=== PATIENT | male | born 1980 | race Caucasian/White ===

== ENCOUNTER 2017-08-29 18:50 | Inpatient (IN) | payer OTHER ==
[2017-08-29] MEDS ORDERED: Iohexol 240 (50 ml) PO ONE (19:17)
--- NOTE | 2017-08-29 19:21 | ED PDOC ---
HPI: Abdomen Time Seen by Provider: 08/29/17 19:08 Chief Complaint (Nursing): Abdominal Pain Chief Complaint (Provider): Abdominal pain History Per: Patient Additional Complaint(s): 37 yo male, denies any PMH, presents to ED for evaluation of a possible appendicitis. Pt reports that last night ~ 2300, he developed epigastric abdominal pain that has since worsened and is now radiating from umbilical area to RLQ. No nausea, vomiting, diarrhea, constipation, fever or chills. Last ate at dinnertime yesterday, Pt tolerating Po fluids today. Past Medical History Reviewed: Nursing Documentation, Vital Signs Vital Signs: Last Vital Signs Temp 98.9 F 08/29/17 19:01 Pulse 89 08/29/17 19:01 Resp 18 08/29/17 19:01 BP 158/96 H 08/29/17 19:01 Pulse Ox 99 08/29/17 19:01 - Medical History PMH: No Chronic Diseases - Surgical History Surgical History: No Surg Hx - Family History Family History: States: Unknown Family Hx - Living Arrangements Living Arrangements: With Family - Social History Current smoker - smoking cessation education provided: No Alcohol: Social Drugs: Denies - Allergies Allergies/Adverse Reactions: Allergies Allergy/AdvReac Type Severity Reaction Status Date / Time No Known Allergies Allergy Verified 08/29/17 19:01 Review of Systems ROS Statement: Except As Marked, All Systems Reviewed And Found Negative Gastrointestinal: Positive for: Abdominal Pain Physical Exam - Reviewed Nursing Documentation Reviewed: Yes Vital Signs Reviewed: Yes - Physical Exam Appears: Positive for: Non-toxic, No Acute Distress, Uncomfortable Head Exam: Positive for: ATRAUMATIC, NORMAL INSPECTION, NORMOCEPHALIC Skin: Positive for: Normal Color, Warm, DRY Eye Exam: Positive for: EOMI, Normal appearance, PERRL ENT: Positive for: Normal ENT Inspection Neck: Positive for: Normal, Painless ROM Cardiovascular/Chest: Positive for: Regular Rate, Rhythm Respiratory: Positive for: CNT, Normal Breath Sounds Gastrointestinal/Abdominal: Positive for: Bowel Sounds, Soft, Tenderness ( umbilical and RLQ), Rebound. Negative for: Distended, Guarding Back: Positive for: Normal Inspection Extremity: Positive for: Normal ROM Neurologic/Psych: Positive for: Alert, Oriented - ECG O2 Sat by Pulse Oximetry: 99 Medical Decision Making Medical Decision Making: IV access established and treatment initiated with IVF, Zofran and Morphine diagnostics ordered case endorsed to KENNETH Melara at 1999 pending diagnotic review and re-eval. ED MD, Dr. Ann, aware Disposition - Clinical Impression Clinical Impression: Abdominal discomfort - Patient ED Disposition Is Patient to be Admitted: Transfer of Care - Disposition Disposition: Transfer of Care Disposition Time: 19:22 Condition: STABLE
[2017-08-29] MEDS ORDERED: Morphine 4 MG/ML VIAL ONE (19:43)
[2017-08-29] MEDS ORDERED: Iohexol 240 (50 ml) ONE (19:43)
[2017-08-29 19:46] LABS: VENOUS BLOOD GAS PCO2 48 mmHg (40-60); VENOUS BLOOD GAS PO2 18 mm/Hg (30-55)
[2017-08-29 19:55] LABS: BASO # 0.1 K/uL (0.0-0.2); BASO % 0.4 % (0.0-2.0); EOS % 0.1 % (0.0-4.0); HEMOGLOBIN 16.2 g/dL (12.0-18.0); LYMPH # 1.4 K/uL (1.0-4.3); LYMPH % 9.7 % (20.0-40.0); MEAN CELL VOLUME 88.2 fl (80.0-94.0); MEAN CORPUSCULAR HEMOGLOBIN 29.2 pg (27.0-31.0); MEAN CORPUSCULAR HGB CONC 33.1 g/dL (33.0-37.0); MEAN PLATELET VOLUME 6.9 fl (7.2-11.7); MONO # 1.4 K/uL (0.0-0.8); MONO % 9.8 % (0.0-10.0); NEUT # 11.5 K/uL (1.8-7.0); NRBC % 0.1 % (0.0-0.0); PLATELET COUNT 239 K/uL (130-400); RBC 5.56 Mil/uL (4.40-5.90); WHITE BLOOD COUNT 14.3 K/uL (4.8-10.8)
[2017-08-29 19:56] LABS: SQUAMOUS EPITHIAL < 1 /hpf (0-5); URINE BACTERIA RARE (<OCC); URINE BILIRUBIN NEGATIVE (NEGATIVE); URINE BLOOD NEGATIVE (NEGATIVE); URINE CLARITY CLOUDY (Clear); URINE COLOR AMBER (YELLOW); URINE GLUCOSE (UA) NEG (Normal); URINE LEUKOCYTE ESTERASE NEG Leu/uL (Negative); URINE NITRATE NEGATIVE (NEGATIVE); URINE PROTEIN 30 mg/dL (NEGATIVE); URINE UROBILINOGEN 0.2-1.0 mg/dL (0.2-1.0)
[2017-08-29 20:04] LABS: ALBUMIN 4.9 g/dL (3.5-5.0); ALT/SGPT 67 U/L (21-72); AMYLASE 81 U/L (30-110); AST/SGOT 28 U/L (17-59); BLOOD UREA NITROGEN 11 mg/dl (9-20); CALCIUM 9.9 mg/dL (8.4-10.2); GFR AFRICAN-AMERICAN > 60; GFR NON-AFRICAN AMERICAN > 60; LIPASE 36 U/L (23-300)
[2017-08-29 20:09] LABS: ALB/GLOB RATIO 1.3 (1.0-2.1)
[2017-08-29 21:23] LABS: BANDS 5 % (0-2); LYMPHOCYTE 11 % (20-50); MONOCYTE 9 % (0-10); NEUTROPHIL 75 % (42-75); PLATELET ESTIMATE NORMAL (NORMAL); TOTAL CELLS COUNTED 100
[2017-08-29] MEDS ORDERED: Iohexol 300 100 ML IJ ONE (21:47)
[2017-08-29] MEDS ORDERED: Sodium Chloride 0.9% 50 ML IV ONE (21:47)
[2017-08-29] MEDS ORDERED: Piperacillin/Tazobact 4.5 GM in Sodium Chloride 0.9% 100 ML IVPB STA (22:31)
[2017-08-29] MEDS ORDERED: Morphine 4 MG/ML VIAL IVP PRN (23:09)
--- NOTE | 2017-08-29 23:20 | ED PDOC ---
- Laboratory Results Result Diagrams: 08/29/17 19:34 08/29/17 19:34 - ECG O2 Sat by Pulse Oximetry: 99 Medical Decision Making Medical Decision Making: Endorsed pend CT. CT (+) appendicitis. Discussed with Ishmael Narvaez NP for admission. Pt seen by Dr. Ann and discussed with Dr. Bennett. Disposition - Clinical Impression Clinical Impression: Acute appendicitis - POA Present On Arrival: None - Disposition Disposition: Routine/Home Disposition Time: 23:20 Condition: GOOD
[2017-08-30 00:44] LABS: INR 1.1 (0.9-1.2); PARTIAL THROMBOPLASTIN TIME 32.6 Seconds (25.6-37.1); PROTHROMBIN TIME 12.1 Seconds (9.8-13.1)
[2017-08-30] MEDS ORDERED: Piperacillin/Tazobact 3.375 GM in Sodium Chloride 0.9% 100 ML IVPB SCH ×2 (01:00→07:00)
--- NOTE | 2017-08-30 05:55 | CP.PCM.CON ---
<Krystian Serra - Last Filed: 08/30/17 05:52> History of Present Illness - History of Present Illness History of Present Illness: General Surgery Consult for Dr. Bennett This is a 37M with no PMH who presented to the ED with abdominal pain and subjective fevers since monday. He reports that he had nausea with self induced emesis. He reports abdominal pain was generalized then localized to the RLQ. nothing makes it better, nothing makes it worse. He reports decreased appetite since his abd pain began. He reports regular bowel movements. Denies any other alarming symptoms such as SOB or CP. PMH: none PSH: None ALL: NKDA Social:12 pack years, no etoh, no drugs Review of Systems - Review of Systems All systems: reviewed and no additional remarkable complaints except - Constitutional Constitutional: Anorexia, Chills, Fever - Gastrointestinal Gastrointestinal: Abdominal Pain, Nausea, Vomiting. absent: Diarrhea, Loose Stools Past Patient History - Past Medical History & Family History Past Medical History?: Yes - Past Social History Smoking Status: Former Smoker - CARDIAC Hx Cardiac Disorders: No - PULMONARY Hx Respiratory Disorders: No - NEUROLOGICAL Hx Neurological Disorder: No - HEENT Hx HEENT Problems: Yes Other/Comment: wears eye glasses - RENAL Hx Chronic Kidney Disease: No - ENDOCRINE/METABOLIC Hx Endocrine Disorders: No - HEMATOLOGICAL/ONCOLOGICAL Hx Blood Disorders: No - INTEGUMENTARY Hx Dermatological Problems: No - MUSCULOSKELETAL/RHEUMATOLOGICAL Hx Musculoskeletal Disorders: No Hx Falls: No - GASTROINTESTINAL Hx Gastrointestinal Disorders: No - GENITOURINARY/GYNECOLOGICAL Hx Genitourinary Disorders: No - PSYCHIATRIC Hx Psychophysiologic Disorder: No Hx Substance Use: No - SURGICAL HISTORY Hx Surgeries: Yes Other/Comment: left wrist surgery - ANESTHESIA Hx Anesthesia: Yes Hx Anesthesia Reactions: No Hx Malignant Hyperthermia: No Meds Allergies/Adverse Reactions: Allergies Allergy/AdvReac Type Severity Reaction Status Date / Time No Known Allergies Allergy Verified 08/29/17 19:01 - Medications Medications: Current Medications Piperacillin Sod/Tazobactam (Sod 3.375 gm/ Sodium Chloride) 100 mls @ 100 mls/ hr IVPB Q8 HARRISON PRN Reason: Protocol Morphine Sulfate (Morphine) 4 mg IVP Q4 PRN PRN Reason: pain 6-10 Last Admin: 08/30/17 00:47 Dose: 4 mg Ondansetron HCl (Zofran Inj) 4 mg IVP Q6 PRN PRN Reason: Nausea/Vomiting Physical Exam - Constitutional Appears: Non-toxic, No Acute Distress - Head Exam Head Exam: ATRAUMATIC, NORMOCEPHALIC - Eye Exam Eye Exam: EOMI - ENT Exam ENT Exam: Mucous Membranes Moist - Respiratory Exam Respiratory Exam: NORMAL BREATHING PATTERN - Cardiovascular Exam Cardiovascular Exam: +S1, +S2 - GI/Abdominal Exam GI & Abdominal Exam: Guarding, Soft, Tenderness. absent: Distended, Firm, Hernia, Organomegaly, Pulsatile Mass, Rebound, Rigid - Extremities Exam Extremities exam: Positive for: normal inspection - Neurological Exam Neurological exam: Alert, Oriented x3 - Psychiatric Exam Psychiatric exam: Normal Affect, Normal Mood - Skin Skin Exam: Dry, Intact Results - Vital Signs Recent Vital Signs: Last Vital Signs Temp 98.7 F 08/30/17 00:17 Pulse 78 08/30/17 00:45 Resp 19 08/30/17 00:45 BP 130/85 08/30/17 00:17 Pulse Ox 96 08/30/17 00:45 - Labs Result Diagrams: 08/29/17 19:34 08/29/17 19:34 Labs: Laboratory Results - last 24 hr 08/29/17 08/29/17 08/29/17 19:34 19:34 19:34 WBC 14.3 H RBC 5.56 Hgb 16.2 Hct 49.0 MCV 88.2 MCH 29.2 MCHC 33.1 RDW 14.0 Plt Count 239 MPV 6.9 L Neut % (Auto) 80.0 H Lymph % (Auto) 9.7 L [place] % (Auto) 9.8 Eos % (Auto) 0.1 Baso % (Auto) 0.4 Neut # 11.5 H Lymph # 1.4 [place] # 1.4 H Eos # 0.0 Baso # 0.1 Neutrophils % (Manual) 75 Band Neutrophils % 5 H Lymphocytes % (Manual) 11 L Monocytes % (Manual) 9 Platelet Estimate Normal PT INR APTT pO2 VBG pH VBG pCO2 VBG HCO3 VBG Total CO2 VBG O2 Sat (Calc) VBG Base Excess VBG Potassium Glucose Lactate FiO2 Sodium 140 Potassium 4.5 Chloride 100 Carbon Dioxide 26 Anion Gap 19 BUN 11 Creatinine 0.8 Est GFR ( Amer) > 60 Est GFR (Non-Af Amer) > 60 Random Glucose 114 H Calcium 9.9 Total Bilirubin 0.6 AST 28 ALT 67 Alkaline Phosphatase 96 Total Protein 8.5 H Albumin 4.9 Globulin 3.7 Albumin/Globulin Ratio 1.3 Amylase 81 Lipase 36 Venous Blood Potassium Urine Color Lola Urine Clarity Cloudy Urine pH 6.0 Ur Specific [place] 1.026 Urine Protein 30 Urine Glucose (UA) Neg Urine Ketones Trace Urine Blood Negative Urine Nitrate Negative Urine Bilirubin Negative Urine Urobilinogen 0.2-1.0 Ur Leukocyte Esterase Neg Urine RBC (Auto) 3 Urine Microscopic WBC 3 Ur Squamous Epith Cells < 1 Urine Bacteria Rare 08/29/17 08/30/17 19:41 00:13 WBC RBC Hgb Hct MCV MCH MCHC RDW Plt Count MPV Neut % (Auto) Lymph % (Auto) [place] % (Auto) Eos % (Auto) Baso % (Auto) Neut # Lymph # [place] # Eos # Baso # Neutrophils % (Manual) Band Neutrophils % Lymphocytes % (Manual) Monocytes % (Manual) Platelet Estimate PT 12.1 INR 1.1 APTT 32.6 pO2 18 L VBG pH 7.40 VBG pCO2 48 VBG HCO3 26.1 VBG Total CO2 31.2 H VBG O2 Sat (Calc) 31.8 L VBG Base Excess 4.0 H VBG Potassium 4.7 Glucose 120 H Lactate 1.2 FiO2 21.0 Sodium 137.0 Potassium Chloride 103.0 Carbon Dioxide Anion Gap BUN Creatinine Est GFR ( Amer) Est GFR (Non-Af Amer) Random Glucose Calcium Total Bilirubin AST ALT Alkaline Phosphatase Total Protein Albumin Globulin Albumin/Globulin Ratio Amylase Lipase Venous Blood Potassium 4.7 Urine Color Urine Clarity Urine pH Ur Specific [place] Urine Protein Urine Glucose (UA) Urine Ketones Urine Blood Urine Nitrate Urine Bilirubin Urine Urobilinogen Ur Leukocyte Esterase Urine RBC (Auto) Urine Microscopic WBC Ur Squamous Epith Cells Urine Bacteria Assessment & Plan - Assessment and Plan (Free Text) Assessment: 37M with an acute appendicitis NPO IVF ABX OR today for appendectomy d/w Dr. Sabrina Serra PGY2 <Eusebio Bennett - Last Filed: 08/30/17 11:14> History of Present Illness - History of Present Illness History of Present Illness: Patient was seen and examined at the bedside. Agree with resident's note above. Meds - Medications Medications: Current Medications Sodium Chloride (Sodium Chloride 0.9%) 1,000 mls @ 125 mls/hr IV .Q8H HARRISON Stop: 08/31/17 05:56 Last Admin: 08/30/17 06:07 Dose: 125 mls/hr Piperacillin Sod/Tazobactam (Sod 3.375 gm/ Sodium Chloride) 100 mls @ 100 mls/ hr IVPB Q8@0600,1400,2200 HARRISON PRN Reason: Protocol Morphine Sulfate (Morphine) 4 mg IVP Q4 PRN PRN Reason: pain 6-10 Last Admin: 08/30/17 08:28 Dose: 4 mg Ondansetron HCl (Zofran Inj) 4 mg IVP Q6 PRN PRN Reason: Nausea/Vomiting Results - Vital Signs Recent Vital Signs: Last Vital Signs Temp 99.9 F H 08/30/17 07:50 Pulse 83 08/30/17 07:50 Resp 20 08/30/17 07:50 BP 136/83 08/30/17 07:50 Pulse Ox 99 08/30/17 07:50 - Labs Result Diagrams: 08/30/17 05:45 08/30/17 05:45 Labs: Laboratory Results - last 24 hr 08/29/17 08/29/17 08/29/17 19:34 19:34 19:34 WBC 14.3 H RBC 5.56 Hgb 16.2 Hct 49.0 MCV 88.2 MCH 29.2 MCHC 33.1 RDW 14.0 Plt Count 239 MPV 6.9 L Neut % (Auto) 80.0 H Lymph % (Auto) 9.7 L [place] % (Auto) 9.8 Eos % (Auto) 0.1 Baso % (Auto) 0.4 Neut # 11.5 H Lymph # 1.4 [place] # 1.4 H Eos # 0.0 Baso # 0.1 Neutrophils % (Manual) 75 Band Neutrophils % 5 H Lymphocytes % (Manual) 11 L Monocytes % (Manual) 9 Platelet Estimate Normal PT INR APTT pO2 VBG pH VBG pCO2 VBG HCO3 VBG Total CO2 VBG O2 Sat (Calc) VBG Base Excess VBG Potassium Glucose Lactate FiO2 Sodium 140 Potassium 4.5 Chloride 100 Carbon Dioxide 26 Anion Gap 19 BUN 11 Creatinine 0.8 Est GFR ( Amer) > 60 Est GFR (Non-Af Amer) > 60 Random Glucose 114 H Calcium 9.9 Total Bilirubin 0.6 AST 28 ALT 67 Alkaline Phosphatase 96 Total Protein 8.5 H Albumin 4.9 Globulin 3.7 Albumin/Globulin Ratio 1.3 Amylase 81 Lipase 36 Venous Blood Potassium Urine Color [place] Urine Clarity Cloudy Urine pH 6.0 Ur Specific [place] 1.026 Urine Protein 30 Urine Glucose (UA) Neg Urine Ketones Trace Urine Blood Negative Urine Nitrate Negative Urine Bilirubin Negative Urine Urobilinogen 0.2-1.0 Ur Leukocyte Esterase Neg Urine RBC (Auto) 3 Urine Microscopic WBC 3 Ur Squamous Epith Cells < 1 Urine Bacteria Rare 08/29/17 08/30/17 08/30/17 19:41 00:13 05:45 WBC 14.1 H RBC 5.31 Hgb 15.7 Hct 45.6 MCV 85.8 D MCH 29.6 MCHC 34.5 RDW 13.9 Plt Count 220 MPV 7.2 Neut % (Auto) 77.2 H Lymph % (Auto) 12.0 L [place] % (Auto) 10.5 H Eos % (Auto) 0.2 Baso % (Auto) 0.1 Neut # 10.9 H Lymph # 1.7 [place] # 1.5 H Eos # 0.0 Baso # 0.0 Neutrophils % (Manual) Band Neutrophils % Lymphocytes % (Manual) Monocytes % (Manual) Platelet Estimate PT 12.1 INR 1.1 APTT 32.6 pO2 18 L VBG pH 7.40 VBG pCO2 48 VBG HCO3 26.1 VBG Total CO2 31.2 H VBG O2 Sat (Calc) 31.8 L VBG Base Excess 4.0 H VBG Potassium 4.7 Glucose 120 H Lactate 1.2 FiO2 21.0 Sodium 137.0 Potassium Chloride 103.0 Carbon Dioxide Anion Gap BUN Creatinine Est GFR ( Amer) Est GFR (Non-Af Amer) Random Glucose Calcium Total Bilirubin AST ALT Alkaline Phosphatase Total Protein Albumin Globulin Albumin/Globulin Ratio Amylase Lipase Venous Blood Potassium 4.7 Urine Color Urine Clarity Urine pH Ur Specific [place] Urine Protein Urine Glucose (UA) Urine Ketones Urine Blood Urine Nitrate Urine Bilirubin Urine Urobilinogen Ur Leukocyte Esterase Urine RBC (Auto) Urine Microscopic WBC Ur Squamous Epith Cells Urine Bacteria 08/30/17 05:45 WBC RBC Hgb Hct MCV MCH MCHC RDW Plt Count MPV Neut % (Auto) Lymph % (Auto) [place] % (Auto) Eos % (Auto) Baso % (Auto) Neut # Lymph # [place] # Eos # Baso # Neutrophils % (Manual) Band Neutrophils % Lymphocytes % (Manual) Monocytes % (Manual) Platelet Estimate PT INR APTT pO2 VBG pH VBG pCO2 VBG HCO3 VBG Total CO2 VBG O2 Sat (Calc) VBG Base Excess VBG Potassium Glucose Lactate FiO2 Sodium 140 Potassium 4.0 Chloride 102 Carbon Dioxide 24 Anion Gap 18 BUN 11 Creatinine 0.8 Est GFR ( Amer) > 60 Est GFR (Non-Af Amer) > 60 Random Glucose 116 H Calcium 9.4 Total Bilirubin 0.7 AST 22 ALT 58 Alkaline Phosphatase 88 Total Protein 7.8 Albumin 4.4 Globulin 3.4 Albumin/Globulin Ratio 1.3 Amylase Lipase Venous Blood Potassium Urine Color Urine Clarity Urine pH Ur Specific [place] Urine Protein Urine Glucose (UA) Urine Ketones Urine Blood Urine Nitrate Urine Bilirubin Urine Urobilinogen Ur Leukocyte Esterase Urine RBC (Auto) Urine Microscopic WBC Ur Squamous Epith Cells Urine Bacteria
[2017-08-30] MEDS: Sodium Chloride 0.9% 1,000 ML IV SCH ×2 (06:07→14:09)
[2017-08-30 07:08] LABS: BASO % 0.1 % (0.0-2.0); EOS % 0.2 % (0.0-4.0); HEMOGLOBIN 15.7 g/dL (12.0-18.0); LYMPH # 1.7 K/uL (1.0-4.3); MEAN CELL VOLUME 85.8 fl (80.0-94.0); MEAN CORPUSCULAR HEMOGLOBIN 29.6 pg (27.0-31.0); MEAN CORPUSCULAR HGB CONC 34.5 g/dL (33.0-37.0); MEAN PLATELET VOLUME 7.2 fl (7.2-11.7); MONO # 1.5 K/uL (0.0-0.8); MONO % 10.5 % (0.0-10.0); NEUT # 10.9 K/uL (1.8-7.0); NEUT % 77.2 % (50.0-75.0); RBC 5.31 Mil/uL (4.40-5.90); RED CELL DISTRIBUTION WIDTH 13.9 % (11.5-14.5); WHITE BLOOD COUNT 14.1 K/uL (4.8-10.8)
[2017-08-30 07:19] LABS: ALB/GLOB RATIO 1.3 (1.0-2.1); ALBUMIN 4.4 g/dL (3.5-5.0); ALT/SGPT 58 U/L (21-72); AST/SGOT 22 U/L (17-59); BLOOD UREA NITROGEN 11 mg/dl (9-20); CALCIUM 9.4 mg/dL (8.4-10.2); GFR AFRICAN-AMERICAN > 60; GFR NON-AFRICAN AMERICAN > 60
--- NOTE | 2017-08-30 08:41 | CP.PCM.HP ---
History of Present Illness - History of Present Illness History of Present Illness: pt admitted for acute ap. denies f/c, n/v/d at presend just w/ rlq pain x 2 days [facility]. no med/surg hx. tender to rlq Present on Admission - Present on Admission Any Indicators Present on Admission: No Review of Systems - Gastrointestinal Gastrointestinal: As Per HPI, Abdominal Pain Past Patient History - Past Medical History & Family History Past Medical History?: Yes - Past Social History Smoking Status: Former Smoker - CARDIAC Hx Cardiac Disorders: No - PULMONARY Hx Respiratory Disorders: No - NEUROLOGICAL Hx Neurological Disorder: No - HEENT Hx HEENT Problems: Yes Other/Comment: wears eye glasses - RENAL Hx Chronic Kidney Disease: No - ENDOCRINE/METABOLIC Hx Endocrine Disorders: No - HEMATOLOGICAL/ONCOLOGICAL Hx Blood Disorders: No - INTEGUMENTARY Hx Dermatological Problems: No - MUSCULOSKELETAL/RHEUMATOLOGICAL Hx Musculoskeletal Disorders: No Hx Falls: No - GASTROINTESTINAL Hx Gastrointestinal Disorders: No - GENITOURINARY/GYNECOLOGICAL Hx Genitourinary Disorders: No - PSYCHIATRIC Hx Psychophysiologic Disorder: No Hx Substance Use: No - SURGICAL HISTORY Hx Surgeries: Yes Other/Comment: left wrist surgery - ANESTHESIA Hx Anesthesia: Yes Hx Anesthesia Reactions: No Hx Malignant Hyperthermia: No Meds Home Medications: Home Medication List Medication Instructions Recorded Confirmed Type Amoxicillin/Clavulanate [Augmentin 1 tab PO BID #14 tab 08/30/17 Rx 875 MG-125 MG] oxyCODONE/Acetaminophen [Percocet 1 tab PO Q4 PRN #10 tab 08/30/17 Rx 5/325 mg Tab] Allergies/Adverse Reactions: Allergies Allergy/AdvReac Type Severity Reaction Status Date / Time No Known Allergies Allergy Verified 08/29/17 19:01 Physical Exam - Constitutional Appears: Well, Non-toxic, No Acute Distress - Head Exam Head Exam: ATRAUMATIC, NORMAL INSPECTION, NORMOCEPHALIC - Eye Exam Eye Exam: EOMI, Normal appearance, PERRL Pupil Exam: NORMAL ACCOMODATION, PERRL - ENT Exam ENT Exam: Mucous Membranes Moist, Normal Exam - Neck Exam Neck exam: Positive for: Normal Inspection - Respiratory Exam Respiratory Exam: Clear to Auscultation Bilateral, NORMAL BREATHING PATTERN - Cardiovascular Exam Cardiovascular Exam: REGULAR RHYTHM, RRR, +S1, +S2 - GI/Abdominal Exam GI & Abdominal Exam: Normal Bowel Sounds, Soft, Tenderness Additional comments: rlq - Extremities Exam Extremities exam: Positive for: full ROM, normal capillary refill, normal inspection, pedal pulses present - Back Exam Back exam: NORMAL INSPECTION - Neurological Exam Neurological exam: Alert, CN II-XII Intact, Normal Gait, Oriented x3, Reflexes Normal - Psychiatric Exam Psychiatric exam: Normal Affect, Normal Mood - Skin Skin Exam: Dry, Intact, Normal Color, Warm Results - Vital Signs Recent Vital Signs: Last Vital Signs Temp 99.9 F H 08/30/17 07:50 Pulse 83 08/30/17 07:50 Resp 20 08/30/17 07:50 BP 136/83 08/30/17 07:50 Pulse Ox 99 08/30/17 07:50 - Labs Result Diagrams: 08/30/17 05:45 08/30/17 05:45 Labs: Laboratory Results - last 24 hr 08/29/17 08/29/17 08/29/17 19:34 19:34 19:34 WBC 14.3 H RBC 5.56 Hgb 16.2 Hct 49.0 MCV 88.2 MCH 29.2 MCHC 33.1 RDW 14.0 Plt Count 239 MPV 6.9 L Neut % (Auto) 80.0 H Lymph % (Auto) 9.7 L [place] % (Auto) 9.8 Eos % (Auto) 0.1 Baso % (Auto) 0.4 Neut # 11.5 H Lymph # 1.4 [place] # 1.4 H Eos # 0.0 Baso # 0.1 Neutrophils % (Manual) 75 Band Neutrophils % 5 H Lymphocytes % (Manual) 11 L Monocytes % (Manual) 9 Platelet Estimate Normal PT INR APTT pO2 VBG pH VBG pCO2 VBG HCO3 VBG Total CO2 VBG O2 Sat (Calc) VBG Base Excess VBG Potassium Glucose Lactate FiO2 Sodium 140 Potassium 4.5 Chloride 100 Carbon Dioxide 26 Anion Gap 19 BUN 11 Creatinine 0.8 Est GFR ( Amer) > 60 Est GFR (Non-Af Amer) > 60 Random Glucose 114 H Calcium 9.9 Total Bilirubin 0.6 AST 28 ALT 67 Alkaline Phosphatase 96 Total Protein 8.5 H Albumin 4.9 Globulin 3.7 Albumin/Globulin Ratio 1.3 Amylase 81 Lipase 36 Venous Blood Potassium Urine Color [place] Urine Clarity Cloudy Urine pH 6.0 Ur Specific [place] 1.026 Urine Protein 30 Urine Glucose (UA) Neg Urine Ketones Trace Urine Blood Negative Urine Nitrate Negative Urine Bilirubin Negative Urine Urobilinogen 0.2-1.0 Ur Leukocyte Esterase Neg Urine RBC (Auto) 3 Urine Microscopic WBC 3 Ur Squamous Epith Cells < 1 Urine Bacteria Rare 08/29/17 08/30/17 08/30/17 19:41 00:13 05:45 WBC 14.1 H RBC 5.31 Hgb 15.7 Hct 45.6 MCV 85.8 D MCH 29.6 MCHC 34.5 RDW 13.9 Plt Count 220 MPV 7.2 Neut % (Auto) 77.2 H Lymph % (Auto) 12.0 L [place] % (Auto) 10.5 H Eos % (Auto) 0.2 Baso % (Auto) 0.1 Neut # 10.9 H Lymph # 1.7 [place] # 1.5 H Eos # 0.0 Baso # 0.0 Neutrophils % (Manual) Band Neutrophils % Lymphocytes % (Manual) Monocytes % (Manual) Platelet Estimate PT 12.1 INR 1.1 APTT 32.6 pO2 18 L VBG pH 7.40 VBG pCO2 48 VBG HCO3 26.1 VBG Total CO2 31.2 H VBG O2 Sat (Calc) 31.8 L VBG Base Excess 4.0 H VBG Potassium 4.7 Glucose 120 H Lactate 1.2 FiO2 21.0 Sodium 137.0 Potassium Chloride 103.0 Carbon Dioxide Anion Gap BUN Creatinine Est GFR ( Amer) Est GFR (Non-Af Amer) Random Glucose Calcium Total Bilirubin AST ALT Alkaline Phosphatase Total Protein Albumin Globulin Albumin/Globulin Ratio Amylase Lipase Venous Blood Potassium 4.7 Urine Color Urine Clarity Urine pH Ur Specific [place] Urine Protein Urine Glucose (UA) Urine Ketones Urine Blood Urine Nitrate Urine Bilirubin Urine Urobilinogen Ur Leukocyte Esterase Urine RBC (Auto) Urine Microscopic WBC Ur Squamous Epith Cells Urine Bacteria 08/30/17 05:45 WBC RBC Hgb Hct MCV MCH MCHC RDW Plt Count MPV Neut % (Auto) Lymph % (Auto) [place] % (Auto) Eos % (Auto) Baso % (Auto) Neut # Lymph # [place] # Eos # Baso # Neutrophils % (Manual) Band Neutrophils % Lymphocytes % (Manual) Monocytes % (Manual) Platelet Estimate PT INR APTT pO2 VBG pH VBG pCO2 VBG HCO3 VBG Total CO2 VBG O2 Sat (Calc) VBG Base Excess VBG Potassium Glucose Lactate FiO2 Sodium 140 Potassium 4.0 Chloride 102 Carbon Dioxide 24 Anion Gap 18 BUN 11 Creatinine 0.8 Est GFR ( Amer) > 60 Est GFR (Non-Af Amer) > 60 Random Glucose 116 H Calcium 9.4 Total Bilirubin 0.7 AST 22 ALT 58 Alkaline Phosphatase 88 Total Protein 7.8 Albumin 4.4 Globulin 3.4 Albumin/Globulin Ratio 1.3 Amylase Lipase Venous Blood Potassium Urine Color Urine Clarity Urine pH Ur Specific [place] Urine Protein Urine Glucose (UA) Urine Ketones Urine Blood Urine Nitrate Urine Bilirubin Urine Urobilinogen Ur Leukocyte Esterase Urine RBC (Auto) Urine Microscopic WBC Ur Squamous Epith Cells Urine Bacteria Assessment & Plan (1) DVT prophylaxis Assessment and Plan: scd and ae hose ambulation Status: Acute (2) Acute appendicitis Assessment and Plan: pain control surgery npo ivf cleared for surgery percocet/augmentin in chart Status: Acute Decision To Admit - Pt Status Changed To: Hospital Disposition Of: Observation - . Bed Request Type: Med/Surg Admitting Physician: Zuly Price
[2017-08-30] MEDS ORDERED: Propofol 10 mg/ml Inj (20 ML) ONE (10:24)
[2017-08-30] MEDS ORDERED: Lidocaine 1% 5ml Abboject IV ONE (10:25)
[2017-08-30] MEDS ORDERED: Neostigmine Methylsulfate 2 MG/2 ML ML IV ONE (10:25)
[2017-08-30] MEDS ORDERED: Sevoflurane - Inhalation Anesthetic Liq (250 ml) ONE (10:25)
[2017-08-30] MEDS ORDERED: Lidocaine 4% (Laryng-O-Jet) Kit MM ONE (10:25)
[2017-08-30] MEDS ORDERED: Succinylcholine 200 mg/10 ml Inj IV ONE (10:25)
[2017-08-30] MEDS ORDERED: Midazolam 2 MG/2 ML VIAL ONE (10:25)
[2017-08-30] MEDS ORDERED: Rocuronium 10 mg/ml (5 ml) ONE (10:25)
[2017-08-30] MEDS ORDERED: Bupivacaine 0.5% Inj(30mL) ONE (10:56)
[2017-08-30] MEDS ORDERED: Lactated Ringer's 1,000 ML IV ONE (11:05)
--- NOTE | 2017-08-30 11:21 | CT ---
PROCEDURE: CT Abdomen and Pelvis with contrast HISTORY: r/o appy COMPARISON: None. TECHNIQUE: Contrast dose: 95 mL Omnipaque 300 Radiation dose: Total exam DLP = 1134 mGy-cm. This CT exam was performed using one or more of the following dose reduction techniques: Automated exposure control, adjustment of the mA and/or kV according to patient size, and/or use of iterative reconstruction technique. FINDINGS: LOWER THORAX: Dependent posterior lung base - hypoventilatory attenuation changes. LIVER: Hepatic steatosis. No gross lesion or ductal dilatation. GALLBLADDER AND BILE DUCTS: Unremarkable. PANCREAS: Unremarkable. No gross lesion or ductal dilatation. SPLEEN: Unremarkable. ADRENALS: Unremarkable. No mass. KIDNEYS AND URETERS: Nonobstructing bilateral singular appearing renal calculi noted. The larger calcification is approximately 2 to 3 mm in the left kidney. No hydronephrosis. No solid mass. VASCULATURE: Unremarkable. No aortic aneurysm. BOWEL: Unremarkable. No obstruction. No gross mural thickening. APPENDIX: Distended with periappendiceal mild inflammatory changes- compatible with acute appendicitis. PERITONEUM: Unremarkable. No free fluid. No free air. LYMPH NODES: Unremarkable. No enlarged lymph nodes. BLADDER: Unremarkable. REPRODUCTIVE: Trace central prostatic calcification. Symmetrical proximal central penile bilateral bulbous corpora hyperdensity- - probably relating to enhancement -appears too symmetrical and too low-density for calcifications BONES: No acute fracture. OTHER FINDINGS: None. IMPRESSION: Findings consistent with acute/ subacute appendicitis. No mechanical bowel obstruction or free air. No abscess appreciated Nonobstructing incidental bilateral renal calculi. Central prostatic calcification. Indeterminate hyperdense appearance to the proximal central penile corpora - probably due to enhancement Comments: Preliminary report provided to [facility]
[2017-08-30] MEDS ORDERED: Neostigmine Methylsulfate 3mg/3ml Syringe IV ONE (11:47)
[2017-08-30] MEDS ORDERED: Esmolol 100 mg/10ml Inj IV ONE (11:48)
--- NOTE | 2017-08-30 12:00 | PCM.SURG1 ---
<Phuc Henderson - Last Filed: 08/30/17 11:59> Surgeon's Initial Post Op Note - Surgeon's Notes Surgeon: Dr Bennett Terminal Gauger: Dr Henderson PGY3 Type of Anesthesia: General Endo Pre-Operative Diagnosis: acute appendicitis Operative Findings: phlegmonous appendicitis Post-Operative Diagnosis: as above Operation Performed: laparoscopic appendectomy Specimen/Specimens Removed: appendix Estimated Blood Loss: EBL {In ML}: 15 Blood Products Given: N/A Drains Used: No Drains Post-Op Condition: Good Date of Surgery/Procedure: 08/30/17 Time of Surgery/Procedure: 12:00 <Eusebio Bennett - Last Filed: 08/30/17 12:06> Surgeon's Initial Post Op Note - Surgeon's Notes Operative Findings: gangrenous appendicitis
[2017-08-30] MEDS: HYDROmorphone 0.5 mg/0.5 ml ISec IVP PRN ×2 (12:20→12:30)
[2017-08-30] MEDS ORDERED: HYDROmorphone 0.5 mg/0.5 ml ISec ONE (12:28)
--- NOTE | 2017-08-30 12:37 | OP ---
PROCEDURE DATE: PREOPERATIVE DIAGNOSIS: Acute appendicitis. POSTOPERATIVE DIAGNOSIS: Acute appendicitis. PROCEDURE: Laparoscopic appendectomy. SURGEON: Eusebio Bennett MD. BOAT ASSEMBLER: Dr. Henderson. TYPE OF ANESTHESIA: General endotracheal intubation. INTRAOPERATIVE FINDINGS: Gangrenous acute appendicitis. IV FLUID INTAKE: Crystalloids. ESTIMATED BLOOD LOSS: 5 mL. SPECIMEN: Appendix. BRIEF HISTORY: Mr. Murphy is a very pleasant 37-year-old gentleman, who presented to the hospital complaining of lower abdominal pain for the duration of 2 days and upon further investigation, the patient was found to have elevated white blood cell count as well as CAT scan findings significant for acute appendicitis. All the risks and benefits of the procedure were explained to the patient and with the patient having a full understanding of all the risks and benefits involved, informed consent was obtained and the patient was taken to the operating room for above-stated procedure. DESCRIPTION OF PROCEDURE: The patient was brought into the operating room and placed supine on the operating table. Bilateral Flowtron boots were applied to the patient's lower extremities. After successful induction of anesthesia and successful endotracheal intubation by the Anesthesia Team, a Arcos catheter was inserted into the patient's urinary bladder and subsequent to that, the patient's abdomen was shaved and prepped with ChloraPrep stick and draped in the standard surgical fashion. Prior to the beginning of procedure, time-out was called in the room and everyone in the room were in agreement. Using Veress needle, the patient's abdomen was entered at the umbilicus and pneumoperitoneum was achieved with good opening pressures. Once this was accomplished, using an 11-blade scalpel knife, a 5-mm incision was made in the umbilicus in a longitudinal fashion and subsequent to that, 5 mm trocar was introduced into the patient's abdomen. At that point in time, 5 mm 0-degree scope was introduced into the patient's abdomen and abdomen was inspected. We immediately were able to visualize some inflammatory changes in the right lower quadrant of the patient's abdomen. Then, attention was turned to the lower mid abdomen. Using an 11-blade scalpel knife, 5 mm incision was made in a transverse fashion and subsequent to that, another 5 mm trocar was introduced into the patient's abdomen. At this point of time, attention was turned to the left lower quadrant of the patient's abdomen. Using 11-blade scalpel knife, approximately 1-cm incision was made in a transverse fashion and subsequent to that, a 12 mm trocar was introduced into the patient's abdomen. At this point in time, using 2 graspers, appendix was mobilized and at this point in time, appendix appeared to be stuck to the lateral abdominal wall, so we made a decision to use a Harmonic scalpel to take the mesoappendix as well as attachment of the appendix to the lateral abdominal wall. Once this was accomplished, the mesoappendix was taken with a Harmonic scalpel. Appendix was taken right at the base with a blue load 45-mm Endo RIYA stapler and once the appendix was transected, EndoCatch bag was introduced into the patient's abdomen. The appendix was placed inside of the bag and the bag was closed. At this point in time, the mesoappendix was inspected for hemostasis. Hemostasis was confirmed. The patient's right lower quadrant was irrigated and fluid was suctioned out. At this point in time, EndoCatch bag together with 12 mm trocar and appendix were removed from the patient's abdomen and passed off to the [facility] as a specimen. Fascial layer at the left lower quadrant trocar site was closed with 1 interrupted 0 Vicryl suture on UR-5 needle and subsequent to that, the patient's abdomen was fully desufflated. The rest of the trocars were removed from the patient's abdomen and the skin was closed with 4-0 Monocryl suture in a running subcuticular fashion. At the end of the procedure, incision sites were infiltrated with Marcaine anesthetic. The patient's abdomen was washed and dried and a Dermabond was applied to the incision sites. Arcos catheter was removed from the patient's urinary bladder. The patient was successfully extubated by the Anesthesia Team, transferred to the [facility] and taken to the recovery room in a stable condition. At the end of the procedure, all instrument counts, needles and sponges were correct. Eusebio Bennett MD
[2017-08-30] MEDS: Piperacillin/Tazobact 3.375 GM in Sodium Chloride 0.9% 100 ML IVPB SCH ×2 (13:43→21:16)
[2017-08-30] MEDS: Lactated Ringer's 1,000 ML IV SCH (14:09)
[2017-08-30] MEDS: Oxycodone/Acetaminophen 5/325 mg Tab PO PRN ×2 (15:00→19:53)
[2017-08-31] MEDS: Lactated Ringer's 1,000 ML IV SCH (00:53)
[2017-08-31] MEDS: Sodium Chloride 0.9% 1,000 ML IV SCH (00:53)
[2017-08-31 01:34] VITALS: O2SAT 96
[2017-08-31 01:45] VITALS: RESP 20
[2017-08-31] MEDS: Oxycodone/Acetaminophen 5/325 mg Tab PO PRN ×2 (02:39→09:08)
[2017-08-31] MEDS: Piperacillin/Tazobact 3.375 GM in Sodium Chloride 0.9% 100 ML IVPB SCH (05:27)
[2017-08-31 06:38] LABS: BASO % 0.4 % (0.0-2.0); EOS % 0.4 % (0.0-4.0); HEMOGLOBIN 14.3 g/dL (12.0-18.0); LYMPH # 1.9 K/uL (1.0-4.3); LYMPH % 18.1 % (20.0-40.0); MEAN CELL VOLUME 87.8 fl (80.0-94.0); MEAN CORPUSCULAR HEMOGLOBIN 29.3 pg (27.0-31.0); MEAN CORPUSCULAR HGB CONC 33.3 g/dL (33.0-37.0); MEAN PLATELET VOLUME 7.2 fl (7.2-11.7); MONO # 1.1 K/uL (0.0-0.8); MONO % 10.3 % (0.0-10.0); NEUT # 7.4 K/uL (1.8-7.0); NEUT % 70.8 % (50.0-75.0); RBC 4.88 Mil/uL (4.40-5.90); RED CELL DISTRIBUTION WIDTH 13.6 % (11.5-14.5); WHITE BLOOD COUNT 10.4 K/uL (4.8-10.8)
--- NOTE | 2017-08-31 08:50 | CP.PCM.DIS ---
Provider - Provider Date of Admission: 08/30/17 14:24 Attending physician: Zuly Price MD Time Spent in preparation of Discharge (in minutes): 15 Diagnosis - Discharge Diagnosis (1) DVT prophylaxis Status: Acute (2) Acute appendicitis Status: Acute Hospital Course - Lab Results Lab Results: Micro Results 08/29/17 19:34 Blood Blood Culture - Preliminary NO GROWTH AFTER 24 HOURS Most Recent Lab Values WBC 10.4 K/uL (4.8-10.8) 08/31/17 06:05 RBC 4.88 Mil/uL (4.40-5.90) 08/31/17 06:05 Hgb 14.3 g/dL (12.0-18.0) 08/31/17 06:05 Hct 42.9 % (35.0-51.0) 08/31/17 06:05 MCV 87.8 fl (80.0-94.0) D 08/31/17 06:05 MCH 29.3 pg (27.0-31.0) 08/31/17 06:05 MCHC 33.3 g/dL (33.0-37.0) 08/31/17 06:05 RDW 13.6 % (11.5-14.5) 08/31/17 06:05 Plt Count 201 K/uL (130-400) 08/31/17 06:05 MPV 7.2 fl (7.2-11.7) 08/31/17 06:05 Neut % (Auto) 70.8 % (50.0-75.0) 08/31/17 06:05 Lymph % (Auto) 18.1 % (20.0-40.0) L 08/31/17 06:05 Winn % (Auto) 10.3 % (0.0-10.0) H 08/31/17 06:05 Eos % (Auto) 0.4 % (0.0-4.0) 08/31/17 06:05 Baso % (Auto) 0.4 % (0.0-2.0) 08/31/17 06:05 Neut # 7.4 K/uL (1.8-7.0) H 08/31/17 06:05 Lymph # 1.9 K/uL (1.0-4.3) 08/31/17 06:05 Winn # 1.1 K/uL (0.0-0.8) H 08/31/17 06:05 Eos # 0.0 K/uL (0.0-0.7) 08/31/17 06:05 Baso # 0.0 K/uL (0.0-0.2) 08/31/17 06:05 Neutrophils % (Manual) 75 % (42-75) 08/29/17 19:34 Band Neutrophils % 5 % (0-2) H 08/29/17 19:34 Lymphocytes % (Manual) 11 % (20-50) L 08/29/17 19:34 Monocytes % (Manual) 9 % (0-10) 08/29/17 19:34 Platelet Estimate Normal (NORMAL) 08/29/17 19:34 PT 12.1 Seconds (9.8-13.1) 08/30/17 00:13 INR 1.1 (0.9-1.2) 08/30/17 00:13 APTT 32.6 Seconds (25.6-37.1) 08/30/17 00:13 pO2 18 mm/Hg (30-55) L 08/29/17 19:41 VBG pH 7.40 (7.32-7.43) 08/29/17 19:41 VBG pCO2 48 mmHg (40-60) 08/29/17 19:41 VBG HCO3 26.1 mmol/L 08/29/17 19:41 VBG Total CO2 31.2 mmol/L (22-28) H 08/29/17 19:41 VBG O2 Sat (Calc) 31.8 % (40-65) L 08/29/17 19:41 VBG Base Excess 4.0 mmol/L (0.0-2.0) H 08/29/17 19:41 VBG Potassium 4.7 mmol/L (3.6-5.2) 08/29/17 19:41 Sodium 137.0 mmol/L (132-148) 08/29/17 19:41 Chloride 103.0 mmol/L (98-107) 08/29/17 19:41 Glucose 120 mg/dL (75-110) H 08/29/17 19:41 Lactate 1.2 mmol/L (0.7-2.1) 08/29/17 19:41 FiO2 21.0 % 08/29/17 19:41 Sodium 140 mmol/l (132-148) 08/30/17 05:45 Potassium 4.0 MMOL/L (3.6-5.0) 08/30/17 05:45 Chloride 102 mmol/L (98-107) 08/30/17 05:45 Carbon Dioxide 24 mmol/L (22-30) 08/30/17 05:45 Anion Gap 18 (10-20) 08/30/17 05:45 BUN 11 mg/dl (9-20) 08/30/17 05:45 Creatinine 0.8 mg/dl (0.8-1.5) 08/30/17 05:45 Est GFR ( Amer) > 60 08/30/17 05:45 Est GFR (Non-Af Amer) > 60 08/30/17 05:45 Random Glucose 116 mg/dL (75-110) H 08/30/17 05:45 Calcium 9.4 mg/dL (8.4-10.2) 08/30/17 05:45 Total Bilirubin 0.7 mg/dl (0.2-1.3) 08/30/17 05:45 AST 22 U/L (17-59) 08/30/17 05:45 ALT 58 U/L (21-72) 08/30/17 05:45 Alkaline Phosphatase 88 U/L (38-126) 08/30/17 05:45 Total Protein 7.8 G/DL (6.3-8.2) 08/30/17 05:45 Albumin 4.4 g/dL (3.5-5.0) 08/30/17 05:45 Globulin 3.4 gm/dL (2.2-3.9) 08/30/17 05:45 Albumin/Globulin Ratio 1.3 (1.0-2.1) 08/30/17 05:45 Amylase 81 U/L (30-110) 08/29/17 19:34 Lipase 36 U/L (23-300) 08/29/17 19:34 Venous Blood Potassium 4.7 mmol/L (3.6-5.2) 08/29/17 19:41 Urine Color Lola (YELLOW) 08/29/17 19:34 Urine Clarity Cloudy (Clear) 08/29/17 19:34 Urine pH 6.0 (5.0-8.0) 08/29/17 19:34 Ur Specific [place] 1.026 (1.003-1.030) 08/29/17 19:34 Urine Protein 30 mg/dL (NEGATIVE) 08/29/17 19:34 Urine Glucose (UA) Neg mg/dL (Normal) 08/29/17 19:34 Urine Ketones Trace mg/dL (NEGATIVE) 08/29/17 19:34 Urine Blood Negative (NEGATIVE) 08/29/17 19:34 Urine Nitrate Negative (NEGATIVE) 08/29/17 19:34 Urine Bilirubin Negative (NEGATIVE) 08/29/17 19:34 Urine Urobilinogen 0.2-1.0 mg/dL (0.2-1.0) 08/29/17 19:34 Ur Leukocyte Esterase Neg Maribell/uL (Negative) 08/29/17 19:34 Urine RBC (Auto) 3 /hpf (0-3) 08/29/17 19:34 Urine Microscopic WBC 3 /hpf (0-5) 08/29/17 19:34 Ur Squamous Epith Cells < 1 /hpf (0-5) 08/29/17 19:34 Urine Bacteria Rare (<OCC) 08/29/17 19:34 Discharge Exam - Head Exam Head Exam: ATRAUMATIC, NORMAL INSPECTION, NORMOCEPHALIC - Eye Exam Eye Exam: EOMI, Normal appearance, PERRL Pupil Exam: NORMAL ACCOMODATION, PERRL - Respiratory Exam Respiratory Exam: Clear to PA & Lateral, NORMAL BREATHING PATTERN, UNREMARKABLE - Cardiovascular Exam Cardiovascular Exam: REGULAR RHYTHM, RRR, +S1, +S2 - GI/Abdominal Exam GI & Abdominal Exam: Normal Bowel Sounds, Soft, Unremarkable - Extremities Exam Extremities exam: full ROM, normal capillary refill, normal inspection, pedal pulses present - Back Exam Back exam: FULL ROM - Neurological Exam Neurological exam: Alert, CN II-XII Intact, Normal Gait, Oriented x3, Reflexes Normal - Psychiatric Exam Psychiatric exam: Normal Affect, Normal Mood - Skin Skin Exam: Dry, Intact, Normal Color, Warm Discharge Plan - Discharge Medications Prescriptions: Amoxicillin/Clavulanate [Augmentin 875 MG-125 MG] 1 tab PO BID #14 tab oxyCODONE/Acetaminophen [Percocet 5/325 mg Tab] 1 tab PO Q4 PRN #10 tab PRN Reason: Pain, Severe (8-10) - Follow Up Plan Condition: GOOD Disposition: HOME/ ROUTINE Additional Instructions: cleared by surgery fordc no f/c, n/v/d. wbc 10. feeling good wishes to be dc home. c/o mild and improving dysuria will do ua prior to dc. urine c/s collected final dx-acute ap, dysuria pt to be dc on augmentin/percocet
[2017-08-31 09:13] VITALS: BP 117/70; PULSE 68; TEMP 98
--- NOTE | 2017-08-31 09:55 | CP.PCM.PN ---
Subjective - Date & Time of Evaluation Date of Evaluation: 08/31/17 Time of Evaluation: 07:15 - Subjective Subjective: General surgery progress note for Dr. Medardo Ga, PGY-1 Pt S & E at bedside. Pt reports minimal pain at incision sites. Asking for different food to eat this AM. Denies N & V, F & C, other complaints. Is ambulating. Objective - Vital Signs/Intake and Output Vital Signs (last 24 hours): Temp Pulse Resp BP Pulse Ox 98.0 F 68 20 117/70 96 08/31/17 08:00 08/31/17 08:00 08/31/17 08:00 08/31/17 08:00 08/31/17 08:00 - Medications Medications: Current Medications Piperacillin Sod/Tazobactam (Sod 3.375 gm/ Sodium Chloride) 100 mls @ 100 mls/ hr IVPB Q8@0600,1400,2200 HARRISON PRN Reason: Protocol Last Admin: 08/31/17 05:27 Dose: 100 mls/hr Lactated Ringer's (Lactated Ringer's) 1,000 mls @ 100 mls/hr IV .Q10H [facility] Last Admin: 08/31/17 00:53 Dose: Not Given Morphine Sulfate (Morphine) 4 mg IVP Q4 PRN PRN Reason: pain 6-10 Last Admin: 08/30/17 08:28 Dose: 4 mg Ondansetron HCl (Zofran Inj) 4 mg IVP Q6 PRN PRN Reason: Nausea/Vomiting Oxycodone/Acetaminophen (Percocet 5/325 Mg Tab) 1 tab PO Q4 PRN PRN Reason: Pain, moderate (4-7) Stop: 09/02/17 12:02 Last Admin: 08/31/17 09:08 Dose: 1 tab - Labs Labs: 08/31/17 06:05 08/30/17 05:45 PT 12.1 Seconds (9.8-13.1) 08/30/17 00:13 INR 1.1 (0.9-1.2) 08/30/17 00:13 APTT 32.6 Seconds (25.6-37.1) 08/30/17 00:13 - Constitutional Appears: Non-toxic, No Acute Distress - Head Exam Head Exam: ATRAUMATIC, NORMAL INSPECTION, NORMOCEPHALIC - Eye Exam Eye Exam: EOMI, Normal appearance - ENT Exam ENT Exam: Mucous Membranes Moist, Normal Exam - Neck Exam Neck Exam: Full ROM, Normal Inspection - Respiratory Exam Respiratory Exam: NORMAL BREATHING PATTERN - Cardiovascular Exam Cardiovascular Exam: REGULAR RHYTHM, +S1, +S2 - GI/Abdominal Exam GI & Abdominal Exam: Soft, Tenderness (mild, over incision sites). absent: Distended, Firm, Guarding, Rigid - Extremities Exam Extremities Exam: Full ROM, Normal Inspection - Neurological Exam Neurological Exam: Alert, Awake, CN II-XII Intact, Normal Gait, Oriented x3 - Psychiatric Exam Psychiatric exam: Normal Affect, Normal Mood - Skin Skin Exam: Dry, Intact, Normal Color, Warm Additional comments: surgical sites- 1 umbilical, 2 over LLQ, all with dermabond in place, no erythema or drainage noted Assessment and Plan - Assessment and Plan (Free Text) Assessment: 37M POD#1 laparoscopic appendectomy, doing well Plan: Requested different food for pt to eat Cleared for discharge home if tolerates diet from surgical standpoint Ok to send on PO pain meds Will NASH attending Sury, PGY-1
[2017-08-31 16:06] LABS: URINE BILIRUBIN NEGATIVE (NEGATIVE); URINE BLOOD NEGATIVE (NEGATIVE); URINE CLARITY CLEAR (Clear); URINE COLOR YELLOW (YELLOW); URINE GLUCOSE (UA) NEG (Normal); URINE LEUKOCYTE ESTERASE NEG Leu/uL (Negative); URINE NITRATE NEGATIVE (NEGATIVE); URINE PROTEIN NEGATIVE (NEGATIVE); URINE UROBILINOGEN 0.2-1.0 mg/dL (0.2-1.0)
[2017-08-31 16:13] LABS: SQUAMOUS EPITHIAL 1 /hpf (0-5); URINE BACTERIA RARE (<OCC)
== END 2017-08-31 13:41 | disposition home or self-care (01) | DRG 343 ==
LOC: H.ER 18:50 → H.ERHOLD 22:30 → H.MEDSURG1 23:51 → OBSVTOIN 08-30 14:24
PROVIDERS: ADMIT Family Medicine; ATTEND Family Medicine
PROC: 0DTJ4ZZ Resection of Appendix, Percutaneous Endoscopic Approach (ICD-10-PCS; principal; 2017-08-30 10:30)
DX: K35.80 Unspecified acute appendicitis (principal); R30.0 Dysuria; Z87.891 Personal history of nicotine dependence